=== PATIENT | female | born 1955 | race Caucasian/White ===

== ENCOUNTER 2017-01-30 08:18 | Emergency (ER) | payer OTHER ==
[~2017-01-30] VITALS: Ht 157.5 cm; Wt 55.3 kg
[~2017-01-30 08:18] MED LIST: MULT-1018 PO; VITA100T4 PO
[2017-01-30 08:22] VITALS: BP 148/80; PULSE 69; RESP 18; O2SAT 97
--- NOTE | 2017-01-30 08:44 | ED.REPORT ---
HPI-Altered Mental Status Date of Service Jan 30, 2017 ED Provider: Dr. Sylvester 61 y/o female with a hx of depression presents to the ED with her due to disorientation, onset few days ago. As per the pt's the pt has been "zoning out". He states "she has not been sleeping at night. She keeps fixing covers and pulling on my sierra". He brought her in today because as she was cooking breakfast this morning, "she cleaned the counter half a dozen times and then peed her pants". Associated sx include memory problems and confusion. The pt also reports intermittent dysuria. She denies myalgia, fever, nausea, headache, abdominal pain. Nursing Notes Stated Complaint: DISORIENTED Chief Complaint: Neuro Symptoms/ Deficits Nursing Notes Reviewed: Yes Allergies: Coded Allergies: shellfish derived (Verified Allergy, Unknown, 03/21/16) Scheduled Ciprofloxacin (Cipro) 500 Mg Tablet 500 MG PO BID Multivitamin (Multi Vitamin Daily) 1 Each Tablet 1 EACH PO DAILY Vitamin B Complex 100 No.2 (B-100 Complex) 100 Mg Tablet.er 100 MG PO DAILY General Time Seen by MD: 08:44 Chief Complaint Disoriented Hx Obtained From: Patient, Spouse Arrived By: Walk-in Sudden in Onset?: Yes Onset Occurred: 4 days ago Symptom Duration: Since onset Severity: Current: No pain currently Severity: Maximum: No pain Recent Healthcare: No recent doctor visit Similar Sx Previous: No Past Medical History Past Medical History Hx of EtOH abuse Depression Arthritis Past Surgical History Denies Family History Non-contributory Smoking History Heavy Tobacco Smoker Social History Alcohol Use: Denies alcohol use Drug Use: THC Review of Systems Reports: memory problems Reports: Disorientation Constitutional: Denies: Fever GI: Denies: Abdominal pain, Nausea Neurologic: Denies: Headache Psychiatric: Reports: Confusion Complete sys rev & neg: except as marked. Male: Reports Dysuria Musculoskeletal: Denies: Myalgia Physical Exam Initial Vital Signs Vital Signs (First) Date Time Temp Pulse Resp B/P Pulse Ox O2 Delivery O2 Flow Rate FiO2 01/30/17 08:22 36.2 69 18 148/80 97 Room Air Initial VS: Reviewed Abdomen / GI: Soft, Non-tender Extremities: Vascular intact, Neuro intact, No swelling, No tenderness Skin: Warm, Dry, No cyanosis General/Constitutional: Awake, Alert, Well appearing Head / Eyes: Atraumatic, Normocephalic Neck: Atraumatic, Supple Respiratory / Chest: Atraumatic, Breath sounds NL, Breath sounds = bilat, No respiratory distress, No rales, No rhonchi, No wheezing Cardiovascular: Heart rate NL, Regular rhythm, Heart sounds NL Neurologic: Speech NL, No motor deficits, No sensory deficits Abnormal Mood/Affect: Positive: Flat affect Abnormal Thinking / Perception: Positive: Confused, Insight abnormal, Judgment abnormal She missed 4 points on a partial MMSE. Could not identify the floor of the building and could not repeat back 3 objects. She is oriented to place. Interpretation & Diagnostics Lab Results Interpretation Result Diagram: 01/30/17 1005 01/30/17 1005 Test 01/30/17 10:05 01/30/17 10:35 White Blood Count 7.9th/mm3 (3.8-10.1) Red Blood Count 4.87mil/mm3 (3.90-5.20) Hemoglobin 15.7g/dL (12.0-15.6) Hematocrit 45.9% (35.0-46.0) Mean Corpuscular Volume 94.3fL (81-100) Mean Corpuscular Hemoglobin 32.2pg (27.0-35.0) Mean Corpuscular Hemoglobin Concent 34.2% (32.0-37.0) Red Cell Distribution Width 13.5% (12.3-15.4) Platelet Count 154bil/L (150-400) Neutrophils (%) (Auto) 68.2% (40-74) Lymphocytes (%) (Auto) 21.8% (14-46) Monocytes (%) (Auto) 7.7% (4-12) Eosinophils (%) (Auto) 1.8% (0-5) Basophils (%) (Auto) 0.4% (0-3) Sodium Level 141mEq/L (134-144) Potassium Level 4.0mEq/L (3.5-5.2) Chloride Level 103mEq/L (97-108) Carbon Dioxide Level 23mmol/L (18-29) Blood Urea Nitrogen 19mg/dL (8-27) Creatinine 0.49mg/dL (0.57-1.00) Estimat Glomerular Filtration Rate 183mL/min (>59) Glucose Level 116mg/dL (60-99) Calcium Level 9.2mg/dL (8.5-10.1) Magnesium Level 2.1mg/dL (1.6-2.6) Total Bilirubin 0.4mg/dL (0.0-1.2) Aspartate Amino Transf (AST/SGOT) 19U/L (0-50) Alanine Aminotransferase (ALT/SGPT) 16U/L (0-32) Alkaline Phosphatase 71U/L (25-165) Total Protein 6.9g/dL (6.4-8.4) Albumin 4.5g/dL (3.4-5.0) Thyroid Stimulating Hormone (TSH) 2.290uIU/mL (0.450-4.500) Hold Owen Top Tube Received (Received) Urine Color Yellow (YELLOW) Urine Appearance Hazy (CLEAR,HAZY) Urine pH 6.0 (5.0-8.0) Urine Specific [place] 1.005 (1.003-1.035) Urine Protein Negativemg/dL (NEG,TRACE) Urine Glucose (UA) Negativemg/dL (NEGATIVE) Urine Ketones Negativemg/dL (NEGATIVE) Urine Occult Blood Negative (NEGATIVE) Urine Nitrite Negative (NEGATIVE) Urine Bilirubin Negative (NEGATIVE) Urine Urobilinogen Normalmg/dL (NORMAL) Urine Leukocyte Esterase Large (NEGATIVE) Urine RBC 0-2/hpf (0-2) Urine WBC 6-10/hpf (0-5) Urine Epithelial Cells Occasional/hpf (NONE-MOD) Urine Crystals None seen (NONE SEEN) Urine Bacteria Many/hpf (NONE-FEW) Urine Hyaline Casts None/lpf (NONE) Urine Granular Casts None seen (NONE SEEN) Urine Waxy Casts None seen (NONE SEEN) Urine Red Blood Cell Casts None seen (NONE SEEN) Urine White Blood Cell Casts None seen (NONE SEEN) Urine Mucus Present (None Seen) Urine Trichomonas None seen (NONE SEEN) Urine Yeast None (NONE SEEN) Urinalysis Comment None Urine Culture Reflexed Indicated CT Head Interpretation IMPRESSION: Negative head CT. No acute intracranial hemorrhage. Dictated by: Boaz Ventura M.D. on 01/30/2017 at 8:15 Approved by: Boaz Ventura M.D. on 01/30/2017 at 8:17 Study: Head CT no contrast Interpretation / Wet Read by: Interpret - Radiologist Re-Eval/Medical Decision Re-Evaluation/Progress : Time of Eval: 12:08 Re-Evaluation/Progress Note: Rechecked pt. Discussed lab results, imaging results, diagnosis and plan to discharge. Pt understands and agrees with the plan. F/U instructions and RTER warning given. All questions addressed. Counseled Regarding: Diagnosis, Lab results, Need for follow-up, When/why to return to ED Patient Discharge & Departure Impression: Primary Impression: UTI (urinary tract infection) Urinary tract infection type: acute cystitis Hematuria presence: without hematuria Qualified Code: N30.00 - Acute cystitis without hematuria Additional Impressions: Acute delirium Dementia Dementia type: unspecified type Dementia behavioral disturbance: without behavioral disturbance Qualified Code: F03.90 - Unspecified dementia without behavioral disturbance Disposition: Home (ERASED) Discharge Condition All VS Reviewed: Yes Patient Instructions: Urinary Tract Infection in Women (DC) Additional Instructions: I believe that Jean Claude's acute deterioration in mental status is associated with her bladder infection. I expect her to return to baseline within 24-48 hours. Take the ciprofloxacin every 12 hours for one week. If she is much more ill, call the physician sock and stocking ironer or return to the emergency department. Referrals: Giselle Virk MD (PCP) Scribe Attestation Portions of this note were transcribed by Kaycee Hood. I, , personally performed the history, physical exam and medical decision-making;I reviewed and confirmed the accuracy of the information in the transcribed note. Signed by Aminah Aviles. 01/30/17 13:24 copies to: Giselle Virk MD, Kirk H MD Jan 30, 2017 08:44 Kaycee Hood Jan 30, 2017 10:03
--- NOTE | 2017-01-30 09:18 | DRSVH ---
PROCEDURE: CT BRAIN WITHOUT CONTRAST ([id number]) INDICATIONS: confusion sudden onset TECHNIQUE: Noncontrast 4.5 mm thick angled axial sections acquired from the foramen magnum to the vertex, with c oronal reformats. COMPARISON: [facility], CT, BRAIN W/O CONTRAST, 07/05/2014, 17:46. FINDINGS: Image quality: Excellent. CSF spaces: Basal cisterns are patent. No extra-axial fluid collections. Ventricles are normal in size and shape. Brain: No midline shift. No intracranial masses or hemorrhage. Dotson-white matter interface is norm al. Skull and face: Calvarium and visualized facial bones are intact, without suspicious lesions. Sinuses: Visualized sinuses and mastoids are clear. IMPRESSION: Negative head CT. No acute intracranial hemorrhage. Dictated by: Boaz Ventura M.D. on 01/30/2017 at 8:15 Approved by: Boaz Ventura M.D. on 01/30/2017 at 8:17
[2017-01-30 10:23] LABS: BASOPHILS % (AUTO) 0.4 % (0-3); EOSINOPHILS % (AUTO) 1.8 % (0-5); MONOCYTES % (AUTO) 7.7 % (4-12); Mean Corpuscular Hemoglobin 32.2 pg (27.0-35.0); Mean Corpuscular Volume 94.3 fL (81-100); NEUTROPHILS % (AUTO) 68.2 % (40-74); Platelet Count 154 bil/L (150-400)
[2017-01-30 11:04] LABS: Magnesium 2.1 mg/dL (1.6-2.6)
[2017-01-30 11:12] LABS: APPEARANCE,URINE HAZY (CLEAR,HAZY); COLOR,URINE YELLOW (YELLOW)
[2017-01-30 11:13] LABS: OCCULT BLOOD,URINE NEGATIVE (NEGATIVE); UROBILINOGEN,URINE NORMAL (NORMAL)
[2017-01-30 11:43] VITALS: BP 167/76; PULSE 78; RESP 14; O2SAT 94
[2017-01-30] MEDS ORDERED: CIPR-231 PO (12:05)
[2017-01-30] MEDS ORDERED: MAGN200T PO (18:02)
== END 2017-01-30 12:20 | disposition home or self-care (01) ==
LOC: SED 08:18
DX: N30.00 Acute cystitis without hematuria (principal); B96.20 Unspecified Escherichia coli [E. coli] as the cause of diseases classified elsewhere; R41.0 Disorientation, unspecified; F03.90 Unspecified dementia, unspecified severity, without behavioral disturbance, psychotic disturbance, mood disturbance, and anxiety; F32.9 Major depressive disorder, single episode, unspecified; F17.200 Nicotine dependence, unspecified, uncomplicated; Z91.013 Allergy to seafood

== ENCOUNTER 2017-01-30 16:42 | Inpatient (IN) | payer OTHER ==
[~2017-01-30] VITALS: Ht 157.5 cm; Wt 55.2 kg
--- NOTE | 2017-01-30 16:32 | ED.REPORT ---
HPI-Seizure Date of Service Jan 30, 2017 ED Provider: Dr. Enriquez Pt is a 61 year old female with a history of chronic Hep C who presents to the ED via EMS with her due to worsening altered mental status onset 2 weeks ago. The states the pt has been "zoning out and has not been sleeping at night. This morning she turned on the water to wash dishes, but there were no dishes in the sink." The reports that she was aggressive and he had to trick the pt into coming to the hospital today. The pt tends to "zone out" for 30 seconds to 2 minutes at one time. The episodes of zoning out have happened 3 times today. Per visit to the ED earlier this morning, the brought her in today because she was cooking breakfast this morning, stating that she "cleaned the counter half a dozen times and peed her pants." The associated symptoms were memory issues and confusion. The pt also reported intermittent dysuria. She was found to have a UTI and was discharged. She denies myalgia, fever, nausea, headache, and abdominal pain. When these "zoning out" episodes began last March, they were occurring very infrequently at about 1-2x every month. Incidentally medics report the house smelled strongly of marijuana upon arrival. Per old records on 04/09/16, the patient had an abnormal EEG 03/08/16 with left temporal slowing which may represent a seizure focus. The left temporal slowing is nonspecific by EEG. The MRI of the brain from 03/15/16 showed no evidence of mass but does show microvascular ischemic disease. She was diagnosed with hep C. The seizure episodes did not appear epileptic in nature, but a video EEG was recommended if the episodes persist despite treatment. Further antiepileptic medications were not recommended. HPI was obtained primarily from the pt's and old records. Nursing Notes Stated Complaint: SEIZURE Chief Complaint: Unresponsive Nursing Notes Reviewed: Yes Allergies: Coded Allergies: shellfish derived (Verified Allergy, Unknown, 03/21/16) Scheduled Ciprofloxacin (Cipro) 500 Mg Tablet 500 MG PO BID Magnesium (Magnesium) 200 Mg Tablet 200 MG PO QAM Multivitamin (Multi Vitamin Daily) 1 Each Tablet 1 EACH PO QAM Vitamin B Complex 100 No.2 (B-100 Complex) 100 Mg Tablet.er 100 MG PO QAM General Time Seen by Provider: 16:46 Chief Complaint Chief Complaint: Other (AMS) Hx Obtained From: Spouse, EMS Arrived By: Ambulance Onset Occurred: More than a week ago... (2 weeks) Symptom Duration: Intermittent Progression Since Onset: Intermittent Severity: Current: No pain currently Severity: Maximum: No pain Recent Healthcare: Recent doctor visit Similar Sx Previous: Yes Past Medical History Past Medical History Hx of EtOH abuse Depression Arthritis UTI Chronic hepatitis C Osteoarthritis of hands, bilateral Past Surgical History Nasal Family History Non-contributory Smoking History Current Every Day Smoker Social History Alcohol Use: Denies alcohol use Drug Use: THC Other Social History: Good social support Ambulatory Status Independent Review of Systems Unable to Obtain ROS Patient condition Physical Exam Initial Vital Signs Vital Signs (First) Date Time Temp Pulse Resp B/P Pulse Ox O2 Delivery O2 Flow Rate FiO2 01/30/17 17:04 36.7 89 23 146/62 94 Room Air Initial VS: Reviewed ENT: Mucous membranes moist, Conjunctiva normal, No scleral icterus Abdomen / GI: Soft, Non-tender, No guarding, No rebound Extremities: Vascular intact, Neuro intact Skin: Warm, Dry, No cyanosis General/Constitutional: Awake, Cooperative, Not toxic appearing Confused and disoriented which makes it difficult to complete a full exam Neck: Atraumatic, Full range of motion Respiratory / Chest: Atraumatic, Breath sounds NL, Breath sounds = bilat, No respiratory distress Cardiovascular: Heart rate NL, Regular rhythm, Heart sounds NL Neurologic: CN II - XII intact Intact sensory exam Cranial nerves appear intact Recurrent tick with voluntary tapping of fingers together and tapping of the hand on her head Moving all 4 extremeties symmetrically Waxing and waning sensorium Head / Eyes: Atraumatic, Normocephalic, PERRL, EOMI Upper Extremity / MS: Atraumatic, Full range of motion, Neurologic intact, Vascular intact Lower Extremity / Pelvis / MS: Atraumatic, Full range of motion, Neurologic intact, Vascular intact Interpretation & Diagnostics Lab Results Interpretation Result Diagram: 01/30/17 1737 Test 01/30/17 17:37 01/30/17 17:59 White Blood Count 8.4th/mm3 (3.8-10.1) Red Blood Count 4.99mil/mm3 (3.90-5.20) Hemoglobin 15.9g/dL (12.0-15.6) Hematocrit 46.8% (35.0-46.0) Mean Corpuscular Volume 93.8fL (81-100) Mean Corpuscular Hemoglobin 31.9pg (27.0-35.0) Mean Corpuscular Hemoglobin Concent 34.0% (32.0-37.0) Red Cell Distribution Width 13.6% (12.3-15.4) Platelet Count 146bil/L (150-400) Neutrophils (%) (Auto) 74.4% (40-74) Lymphocytes (%) (Auto) 16.6% (14-46) Monocytes (%) (Auto) 7.1% (4-12) Eosinophils (%) (Auto) 1.5% (0-5) Basophils (%) (Auto) 0.2% (0-3) Hold Owen Top Tube Received (Received) ECG Interpretation ECG Interpretation: Sinus rhythm with a rate of 90. Time: 16:56 Interpreted by: ED physician X-Ray Chest Interpretation Chest Xray Interpretation: IMPRESSION: Mildly reduced inspiratory volume, no acute disease. Dictated by: Jaylon Pham M.D. on 01/30/2017 at 17:16 View: Portable, 1 view Interpretation / Wet Read by: Interpret - Radiologist CT Head Interpretation IMPRESSION: Normal for age, source of current symptoms is not seen. Dictated by: Jaylon Pham M.D. on 01/30/2017 at 17:17 Study: Head CT no contrast Interpretation / Wet Read by: Interpret - Radiologist Re-Eval/Medical Decision Med Decision/Clinical Course Witnessed seizure-like activity. Dilantin was loaded. Patient has not had a witnessed seizure while in the ER. Recently diagnosed with UTI earlier in the day via cath urine showing both bacteria and white blood cells. Prior records from neurology were reviewed. Discussed with both neurology and the hospitalist. Patient will be admitted. Source of Hx: Old records Re-Evaluation/Progress : Time of Eval: 17:28 )( Re-Eval Neurologic Exam: Unresponsive Re-Evaluation/Progress Note: Pt rechecked. Informed pt and pt's of plan for admission. Pt and pt's understand and agree with plan for admission. All questions addressed. Consultation #1: Referral / Consult Name: Kym Rodgers MD Consulted With: Neurology Call Returned at: 17:31 [employer]: Agrees with eval, Agrees with plan Note: Recommends admit. Get EEG tomorrow. Obtain MRI now. Load fosphenytoin. Start Dilantin 300 mg daily. Can call Dr. Ana Maria courtney if patient is in status or for other concerns. Consultation #2: Referral / Consult Name: Anil Van MD Consulted With: Hospitalist Call Returned at: 18:00 [employer]: Accepts admit Counseled Regarding: Diagnosis, Lab results, Need for admission Discharge & Departure Impression: Primary Impression: Delirium Additional Impression: UTI (urinary tract infection) Urinary tract infection type: site unspecified Hematuria presence: without hematuria Qualified Code: N39.0 - Urinary tract infection, site not specified Disposition: ADMITTED TO HOSPITAL Discharge Condition All VS Reviewed: Yes Condition: Stable Referrals: Giselle Virk MD (PCP) Aminah Attestation Portions of this note were transcribed by Rodney Smith and Lynne Adams. I, Dr. Enriquez personally performed the history, physical exam and medical decision-making; I reviewed and confirmed the accuracy of the information in the transcribed note. Signed by: Rodney Smith and Aminah Rosales, 01/30/17 and 17:50. copies to: Giselle Virk MDAries Vanessa MCCLURE Jan 30, 2017 16:32 Lynne Damian Jan 30, 2017 16:52 RODNEY SMITH Jan 30, 2017 17:37
[~2017-01-30 16:42] MED LIST changes: +CIPR-231 PO
[2017-01-30] MEDS ORDERED: 0.9% Sodium Chloride 1,000 ML IV ONE (16:47)
[2017-01-30] MEDS ORDERED: Fosphenytoin Inj 1,000 mgPE in 0.9% Sodium Chloride 50 ML IV ONE (16:50)
[2017-01-30 17:04] VITALS: BP 146/62; PULSE 89; RESP 23; O2SAT 94
[2017-01-30] MEDS ORDERED: Ammonia Aromatic Inhalant Ampule INHALATION PRN (17:05)
--- NOTE | 2017-01-30 17:18 | DRSVH ---
PROCEDURE: X-RAY CHEST ONE VIEW, PORTABLE ([id number]) INDICATIONS: confusion TECHNIQUE: One view of the chest was acquired. COMPARISON: [facility], , CHEST 1VW (PORTABLE), 07/05/2014, 18:07. FINDINGS: Surgical changes and devices: None. Lungs and pleura: No pleural effusions or pneumothorax. Lungs are clear. Mediastinum: Mediastinal contours appear normal. Heart size is normal. Bones and chest wall: No suspicious bony lesions. Overlying soft tissues appear unremarkable. IMPRESSION: Mildly reduced inspiratory volume, no acute disease. Dictated by: Jaylon Pham M.D. on 01/30/2017 at 17:16 Approved by: Jaylon Pham M.D. on 01/30/2017 at 17:16
--- NOTE | 2017-01-30 17:19 | DRSVH ---
PROCEDURE: CT BRAIN WITHOUT CONTRAST ([id number]) INDICATIONS: Stroke TECHNIQUE: Noncontrast 4.5 mm thick angled axial sections acquired from the foramen magnum to the vertex, with c oronal reformats. COMPARISON: [facility], CT, CT BRAIN WO CON, 01/30/2017, 8:51. FINDINGS: Image quality: Excellent. CSF spaces: Basal cisterns are patent. No extra-axial fluid collections. Ventricles are normal in size and shape. Brain: No midline shift. No intracranial masses or hemorrhage. Dotson-white matter interface is norm al. Skull and face: Calvarium and visualized facial bones are intact, without suspicious lesions. Sinuses: Visualized sinuses and mastoids are clear. IMPRESSION: Normal for age, source of current symptoms is not seen. Dictated by: Jaylon Pham M.D. on 01/30/2017 at 17:17 Approved by: Jaylon Pham M.D. on 01/30/2017 at 17:17
[2017-01-30] MEDS ORDERED: cefTRIAXone Inj 1,000 MG in Dextrose 5% Minibag Plus 50 ML IV ONE (17:40)
[2017-01-30 17:47] LABS: BASOPHILS % (AUTO) 0.2 % (0-3); EOSINOPHILS % (AUTO) 1.5 % (0-5); MONOCYTES % (AUTO) 7.1 % (4-12); Mean Corpuscular Hemoglobin 31.9 pg (27.0-35.0); Mean Corpuscular Volume 93.8 fL (81-100); NEUTROPHILS % (AUTO) 74.4 % (40-74); Platelet Count 146 bil/L (150-400)
[2017-01-30] MEDS ORDERED: MAGN200T PO (18:02)
[2017-01-30] MEDS ORDERED: Alum-Mag Hydrox-Simeth 30 mL Suspension PO PRN ×2 (18:10→18:15)
[2017-01-30] MEDS ORDERED: Ondansetron 2 mg/mL 2 mL Inj IVPUSH PRN ×2 (18:10→18:15)
[2017-01-30] MEDS ORDERED: Polyethylene Glycol (PEG) 17 Gm Powder PO PRN (18:15)
[2017-01-30 18:17] LABS: TROPONIN T < 0.010 ug/L (0.0-0.011)
[2017-01-30 18:48] VITALS: BP 146/62; PULSE 80; RESP 18; O2SAT 96
--- NOTE | 2017-01-30 19:48 | DRSVH ---
PROCEDURE: MRI BRAIN WITHOUT CONTRAST ([id number]) INDICATIONS: altered mental status, seizure like activity TECHNIQUE: Noncontrast axial T1 spin echo, axial T2 fast spin echo, sagittal and axial FLAIR, coronal T2 fast sp in echo, axial gradient echo, axial diffusion and ADC through the brain. COMPARISON: [facility], CT, CT BRAIN WO CON, 01/30/2017, 17:00. FINDINGS: Image quality: Degraded by persistent patient motion during image acquisition. CSF Spaces: Basal cisterns are patent. No extra-axial fluid collections. Ventricles are normal in size and shape. Brain: No intracranial masses or hemorrhage. Dotson/white matter interface is normal. Brainstem appe ars normal. Diffusion-weighted images demonstrate no acute ischemic insult. No chronic ischemic ins ults. Normal intravascular flow voids are present. Skull and face: Calvarium has normal marrow signal. Orbits appear normal. Sinuses: Sinuses and mastoids are clear. IMPRESSION: Persistent patient motion during image acquisition. In repeat pulse sequences were nece ssary. Considering the limitations of this study no acute disease is found. Dictated by: Jaylon Pham M.D. on 01/30/2017 at 19:45 Approved by: Jaylon Pham M.D. on 01/30/2017 at 19:46
[2017-01-30 20:19] VITALS: BP 137/83; PULSE 18; PULSE 68; RESP 18; O2SAT 98
[2017-01-30] MEDS: D5 0.45% NaCl + KCl 20 mEq/L 1,000 ML IV SCH (22:36)
--- NOTE | 2017-01-30 22:40 | PCM.HPMED ---
Subjective Date of Service Jan 30, 2017 Primary Provider: Admitting Physician: Anil Van MD Primary Care Physician: Giselle Virk MD Attending Physician: Anil Van MD Admit Status: From the Emergency Department, Admit to Blue Team Chief Complaint: Ratio is unable to give a chief complaint herself. The patient's Gen states that he brought her to the emergency room, the first time this morning, due to her periodic inappropriate behavior. He then brought her back to the emergency room later today due to the patient having 4 separate tonic-clonic seizures. History of Present Illness: The patient is a 61-year-old white female with a history of chronic hepatitis C and intravenous drug use years ago who for the last 10 years has been having episodes of behavior where she "zones out". These episodes are described as episodes where she is poorly responsive and they last approximately 30 seconds or more. Boluses and the patient's Gen states that she just stares into space. However, some times during these episodes she embarks on inappropriate behavior such as cleaning dishes that are not in the sink or cleaning countertops or pushing buttons. Sometimes these episodes involve hallucinations which the patient reports to her Gen. After the episodes are over what she has no memory of these episodes. The patient's mental status started worsening again 2 weeks ago when the patient has been "zoning out and not been sleeping at night. The morning of admission she turned on the water to wash dishes, but there were no dishes in the sink. The reported that she was aggressive and he had to "trick" the patient into coming to the hospital this morning. The patient's states that the patient tends to "zone out" for 30 seconds to 2 minutes at one time. The episodes of zoning out have happened 3 times the day of admission. The brought the patient to the emergency room this morning because she was cooking breakfast, stating that she "clean the counter half a dozen times and PO2 pants ". The associated symptoms were memory issues and confusion. The patient also reported intermittent dysuria. She is found to have a urinary tract infection in the emergency room and was sent home on oral antibiotics. She barely was sent home on Keflex. He denied any myalgias, fever, nausea, headache or abdominal pain. Patient was evaluated in the emergency room by Dr. Keyshawn Beckham. Dr. Enriquez contacted Dr. Farhana Rodgers who recommended that the patient be given fosphenytoin IV and oral Dilantin daily thereafter. She also recommended that the patient be admitted to the hospital service and neurology be consulted. Therefore, the patient was admitted to the hospital service for further evaluation and treatment. Review of Systems: Review of systems from the patient is unobtainable as patient is somewhat obtunded due to recent IV fosphenytoin, and IV Ativan for her MRI scan and apparently being in a postictal state. Allergies Coded Allergies: shellfish derived (Verified Allergy, Unknown, 03/21/16) PMH Hx of EtOH abuse. The patient's Gen states that the patient was an alcoholic up until approximately 10 years ago when she quit. Patient has a history of intravenous drug use with heroin, speed balls and a previous use of cocaine. She quit all of these years ago and now uses marijuana to help her with her osteoarthritis. She occasionally smokes marijuana and occasionally uses edible marijuana. Depression Arthritis History of UTIs Chronic hepatitis C Osteoarthritis of hands, bilateral Surgical History The patient has had nasal surgery The patient had her was in teeth removed in the [employer] Family History The patient's mother is alive at 87 however she is blind and is a cervical cancer survivor. The patient's father in his 50s after a heart problem or his pacemaker failed. The patient has one sister who is 66 and relatively healthy. The patient had one brother was murdered. Social History Hx Alcohol Use: Yes (quit 10 years ago) Hx Substance Use: Yes (quit iv drug 40 years ago, currently uses maraji) Smoking Status: Current Every Day Smoker Living Arrangement: with Family Additional Information The patient was born in [facility] and went to high school in [place] [facility]. She graduated high school and joined the [employer] and will begin working in the [employer] department where she met her Gen and the 2 have been for 42 years. In her early years the patient did intravenous drugs with heroin, speed balls and used cocaine intranasally. Patient quit drugs years ago. Patient has a history of alcohol abuse and one her Gen confronted her about it he then began finding bottles of vodka around the house. After moving to [place] he would she started drinking wine is her drug of choice. The patient however quit drinking cold turkey 10 years ago. Patient states continues to smoke and smokes 1 pack per day and she rolls her own cigarettes. She also uses marijuana by smoking it and also using edible marijuana to help control her arthritis pain. Patient is 3 para 3 her first child was adopted out before she was to Gen. Exam Vital Signs Vital Sign - Last Date Time Temp Pulse Resp B/P Pulse Ox O2 Delivery O2 Flow Rate FiO2 01/30/17 20:19 37.4 18 18 137/83 98 Room Air Exam General: The patient is quite somnolent however she does have periods of lucidity she is able to follow commands. HEENT: Head is atraumatic and normocephalic. Eyes: Pupils are equally round and reactive to light and accommodation. Extraocular muscles are intact. Sclera are white, anicteric. Subconjunctival mucosa is pink. Ears and nose are unremarkable. Oropharynx: There is no mucosal lesions, there is no thrush, there is no pharyngitis. Neck: Is supple, there are no nodes, or masses or tenderness. Chest: Is clear to auscultation and percussion. There are no rales, rhonchi, wheezes or rubs. Heart: Rate, rhythm is regular. There is no murmur, rub or gallop. Abdomen: Good bowel sounds are present. Abdomen is soft, nontender, no organomegaly or masses were appreciated. Extremities: Are symmetrical and well perfused. There is no edema, there is no cellulitis, no rash. Neurologic: There are no focal neurological deficits. Cranial nerves II through XII are intact. There are no sensory or motor deficits. However, patient is very somnolent after receiving 5 mg of fosphenytoin IV and Ativan IV. She is arousable and will follow commands. However, she will return back to sleep very quickly. She is not able to give a good review of systems or history of this time. An full history was obtained from patient's chart and patient's Gen. Psychiatric: Patients mood is calm and shows no sign of agitation at this time. Genital: Deferred Rectal: Deferred Lab and Diagnostics Result Diagram: 01/30/17 1737 01/30/171736 Microbiology Blood cultures are pending X-Rays, CTs and MRIs PROCEDURE: X-RAY CHEST ONE VIEW, PORTABLE ([id number]) INDICATIONS: confusion TECHNIQUE: One view of the chest was acquired. COMPARISON: [facility], CR, CHEST 1VW (PORTABLE), 07/05/2014, 18: 07. FINDINGS: Surgical changes and devices: None. Lungs and pleura: No pleural effusions or pneumothorax. Lungs are clear. Mediastinum: Mediastinal contours appear normal. Heart size is normal. Bones and chest wall: No suspicious bony lesions. Overlying soft tissues appear unremarkable. IMPRESSION: Mildly reduced inspiratory volume, no acute disease. Dictated by: Jaylon Pham M.D. on 01/30/2017 at 17:16 Approved by: Jaylon Pham M.D. on 01/30/2017 at 17:16 PROCEDURE: CT BRAIN WITHOUT CONTRAST ([id number]) INDICATIONS: Stroke TECHNIQUE: Noncontrast 4.5 mm thick angled axial sections acquired from the foramen magnum to the vertex, with coronal reformats. COMPARISON: [facility], CT, CT BRAIN WO CON, 01/30/2017, 8:51. FINDINGS: Image quality: Excellent. CSF spaces: Basal cisterns are patent. No extra-axial fluid collections. Ventricles are normal in size and shape. Brain: No midline shift. No intracranial masses or hemorrhage. Dotson-white matter interface is normal. Skull and face: Calvarium and visualized facial bones are intact, without suspicious lesions. Sinuses: Visualized sinuses and mastoids are clear. IMPRESSION: Normal for age, source of current symptoms is not seen. Dictated by: Jaylon Pham M.D. on 01/30/2017 at 17:17 Approved by: Jaylon Pham M.D. on 01/30/2017 at 17:17 PROCEDURE: MRI BRAIN WITHOUT CONTRAST ([id number]) INDICATIONS: altered mental status, seizure like activity TECHNIQUE: Noncontrast axial T1 spin echo, axial T2 fast spin echo, sagittal and axial FLAIR, coronal T2 fast spin echo, axial gradient echo, axial diffusion and ADC through the brain. COMPARISON: [facility], CT, CT BRAIN WO CON, 01/30/2017, 17:00. FINDINGS: Image quality: Degraded by persistent patient motion during image acquisition. CSF Spaces: Basal cisterns are patent. No extra-axial fluid collections. Ventricles are normal in size and shape. Brain: No intracranial masses or hemorrhage. Dotson/white matter interface is normal. Brainstem appears normal. Diffusion-weighted images demonstrate no acute ischemic insult. No chronic ischemic insults. Normal intravascular flow voids are present. Skull and face: Calvarium has normal marrow signal. Orbits appear normal. Sinuses: Sinuses and mastoids are clear. IMPRESSION: Persistent patient motion during image acquisition. In repeat pulse sequences were necessary. Considering the limitations of this study no acute disease is found. Dictated by: Jaylon Pham M.D. on 01/30/2017 at 19:45 Approved by: Jaylon Pham M.D. on 01/30/2017 at 19:46 Assessment & Plan The patient is a 61-year-old white female with a history of chronic hepatitis C and intravenous drug use years ago who for the last 10 years has been having episodes of behavior where she "zones out". These episodes are described as episodes where she is poorly responsive and they last approximately 30 seconds or more. Boluses and the patient's Gen states that she just stares into space. However, some times during these episodes she embarks on inappropriate behavior such as cleaning dishes that are not in the sink or cleaning countertops or pushing buttons. Sometimes these episodes involve hallucinations which the patient reports to her Gen. After the episodes are over what she has no memory of these episodes. The patient's mental status started worsening again 2 weeks ago when the patient has been "zoning out and not been sleeping at night. The morning of admission she turned on the water to wash dishes, but there were no dishes in the sink. The reported that she was aggressive and he had to "trick" the patient into coming to the hospital this morning. The patient's states that the patient tends to "zone out" for 30 seconds to 2 minutes at one time. The episodes of zoning out have happened 3 times the day of admission. The brought the patient to the emergency room this morning because she was cooking breakfast, stating that she "clean the counter half a dozen times and PO2 pants ". The associated symptoms were memory issues and confusion. The patient also reported intermittent dysuria. She is found to have a urinary tract infection in the emergency room and was sent home on oral antibiotics. She barely was sent home on Keflex. He denied any myalgias, fever, nausea, headache or abdominal pain. Patient was evaluated in the emergency room by Dr. Keyshawn Beckham. Dr. Enriquez contacted Dr. Farhana Rodgers who recommended that the patient be given fosphenytoin IV and oral Dilantin daily thereafter. She also recommended that the patient be admitted to the hospital service and neurology be consulted. Therefore, the patient was admitted to the hospital service for further evaluation and treatment. # Tonic-clonic seizures witnessed at home prior to admission and witnessed by EMS services the morning of admission, patient postictal at the time of admission. Active - 1000 mg of fosphenytoin IV given in the emergency room. - Continue Dilantin 300 mg by mouth daily thereafter as directed by neurology. - Neurology consult in a.m. regarding treatment contacted by the emergency room staff. - Check EEG - Seizure precautions implemented - Neurochecks every 12 hours # Periodic inappropriate behavior, present at the time of admission. Active - These episodes could be a petite mall seizures or absence seizures. - IV fosphenytoin given - Continue with plan for Dilantin 300 mg by mouth daily - Check EEG - Neurology consult in a.m. - Ativan when necessary # History of hepatitis C, present at time of admission. Active - Status post recent treatment with Harvoni. - History of alcohol and drug abuse - We will check serum ammonia level - Continue to monitor closely. - Further workup for possible resolution of hepatitis C will be done as an outpatient. # Osteoarthritis of both hands, present at time of admission. Active - Patient uses marijuana for relief of pain. - Urine drug screen positive for cannabinoids. # Urinary tract infection diagnosed in the ER this morning. Active - We will start IV Rocephin - Check final urine culture results. Disposition: The patient will likely be admitted for more than 2 Band-Aids. Therefore, will admit the patient as an inpatient. Pain Evaluation: Adequate Pain Control VTE Prophylaxis: Sub-Q Enoxaparin Resuscitation Status: CPR: Attempt Resuscitation Anil Van MD Jan 30, 2017 22:40
[2017-01-31] VITALS (8 sets, daily range): BP systolic 128–183; BP diastolic 74–96; PULSE 73–82; RESP 16–18; O2SAT 94–97
--- NOTE | 2017-01-31 05:12 | NUR ---
Admit Patient admitted to room at 1940. Patient arrived mostly sedated from MRI. Patient confused and unable to answer questions. Patients miles Mendoza, answered medical history and medication. Addendum: 01/31/17 at 0523 by MANJEET CHAU RN Confusion/ Impulsive Patient remained confused and very impulsive. Patient pulled out first IV two minutes after leaving room. suggested sitter, no sitter available. Patients Gen returned to sit with patient. Patient trying to get out of bed without help. Patient unsteady on feet and does not follow directions. Patient has been awake most of the night. Ativan given x 2 with some short time relief.
[2017-01-31 05:36] LABS: BASOPHILS % (AUTO) 0.3 % (0-3); EOSINOPHILS % (AUTO) 3.1 % (0-5); MONOCYTES % (AUTO) 8.4 % (4-12); Mean Corpuscular Hemoglobin 32.1 pg (27.0-35.0); Mean Corpuscular Volume 93.6 fL (81-100); NEUTROPHILS % (AUTO) 61.8 % (40-74); Platelet Count 148 bil/L (150-400)
[2017-01-31 07:13] LABS: Magnesium 1.9 mg/dL (1.6-2.6); Phosphorus 3.6 mg/dL (2.5-4.9)
[2017-01-31] MEDS: D5 0.45% NaCl + KCl 20 mEq/L 1,000 ML IV SCH ×2 (07:31→16:04)
[2017-01-31] MEDS ORDERED: cefTRIAXone Inj 2,000 MG in Dextrose 5% Minibag Plus 50 ML IV SCH (08:00)
[2017-01-31] MEDS ORDERED: Phenytoin 100 mg ER Capsule PO SCH (08:30)
--- NOTE | 2017-01-31 09:23 | NUR ---
Evaluation completed. Please go to "Notes" then click on "Assessments and Notes" (bottom left corner of screen). Then select appropriate discipline tab on top of screen.
[2017-01-31] MEDS: Lactulose 20 Gm/30 mL 30 mL Syrup TUBE SCH ×3 (09:25→20:12)
[2017-01-31] MEDS: Potassium Chloride 20 mEq SR Tablet PO SCH ×2 (09:27→20:12)
--- NOTE | 2017-01-31 12:18 | PCM.CHPMED ---
Subjective Date of Service: Jan 31, 2017 Provider requesting consult: Anil Van MD Primary Physician: Admitting Physician: Anil Van MD Primary Care Physician: Giselle Virk MD Attending Physician: Anil Van MD Chief Complaint: Chief Complaint: Seizure-like activity History of Present Illness: Patient is a 61 year old female with history of IV drug abuse in remission, alcohol abuse, chronic Hepatitis C, and history of UTIs who presented with altered mental status and seizure like activity. She had been seen previously by Dr. Rodgers for confusion and episodes of inattention. Her reports that over the last 10 years, she has exhibited episodes of confusion, where she would temporarily forget where she was or what she was saying. He also reports that she has been having episodes of "zoning out," where she stares into the distance and does not respond to verbal cues. These episodes last between 3- seconds to 3-4 minutes and resolve spontaneously, without a postictal phase and with no memory of the episode. Her mental status began to decline about 2 weeks ago when her noticed that she had more episodes of "zoning out" and had not been sleeping at night. Yesterday, he found her at the sink trying to wash dishes without any dishes in the sink. She became incontinent of urine and he brought her to the Emergency Department that morning. She was diagnosed with a UTI and was sent home with Keflex, but had witnessed seizure-like activity at home and EMS was called. She was brought back to the ED where she received a loading dose of fosphenytoin and placed on Dilantin. The patient had an EEG 03/08/16 which showed left temporal slowing; not specifically epileptiform, but may be consistent with focal epilepsy. MRI of the brain from 03/15/16 showed no evidence of mass but does show microvascular ischemic disease. Brain CT 01/30/17 showed no acute disease. Brain MRI 01/30/17 showed no abnormalities despite significant movement artifact. Tox screen was positive for cannabinoids but negative for other substances or alcohol. Today, she appears somewhat confused but is alert. She denies confusion, numbness, tingling, facial droop, weakness, fevers, chills, dizziness, loss of consciousness, nausea, or vomiting. She denies dysuria but reports difficulty initiating urination. Review of Systems: Comprehensive review of systems conducted and was negative except for the pertinent positives listed above. PMH Past Medical History Hx of EtOH abuse. The patient's Gen states that the patient was an alcoholic up until approximately 10 years ago when she quit. Patient has a history of intravenous drug use with heroin, speed balls and a previous use of cocaine. She quit all of these years ago and now uses marijuana to help her with her osteoarthritis. She occasionally smokes marijuana and occasionally uses edible marijuana. Depression Arthritis History of UTIs Chronic hepatitis C Osteoarthritis of hands, bilateral Surgical History The patient has had nasal surgery The patient had her was in teeth removed in the [employer] Allergies: Coded Allergies: shellfish derived (Verified Allergy, Unknown, 01/30/17) Family History Family History The patient's mother is alive at 87 however she is blind and is a cervical cancer survivor. The patient's father in his 50s after a heart problem or his pacemaker failed. The patient has one sister who is 66 and relatively healthy. The patient had one brother was murdered. Social History Hx Alcohol Use: Yes (quit 10 years ago)Hx Substance Use: Yes (quit iv drug 40 years ago, currently uses maraji) Smoking Status: Current Every Day Smoker Living Arrangement: with Family Exam Vital Signs Vital Sign - Last Date Time Temp Pulse Resp B/P Pulse Ox O2 Delivery O2 Flow Rate FiO2 01/31/17 09:27 37.4 78 18 144/80 94 Room Air Intake and Output 01/30/17 01/30/17 01/31/17 Cumulative From/Thru 15:00 23:00 07:00 01/30/17 17:04 - 01/31/17 06:31 Intake Total 1000 ml 789 ml 1789 ml Output Total 1500 ml 1500 ml Balance 1000 ml -711 ml 289 ml Intake Oral 400 ml 400 ml IV Total 1000 ml 389 ml 1389 ml Output Urine Total 1500 ml 1500 ml # Voids 3 3 # Bowel Movements 1 1 Additional Information: General: Alert, somewhat disoriented. She is stated her maiden name rather than current last name, knew the year after glancing at the whiteboard, and stated she was in the [facility] ER. She appears to often answer questions inappropriately. Cooperative, No acute distress. Appears to be easily distracted and fidgets and pulls at lines and places objects into her pockets while talking. Head: Normocephalic, atraumatic. External ears normal. Eyes: PERRLA, EOMI. Anicteric sclerae. Mouth: Mouth normal, Mucous membranes moist/pink Neck: Neck supple with full range of motion. Chest& Lungs: Clear to auscultation bilaterally with no crackles, wheezes, or rhonchi. Cardiovascular: Regular rate/rhythm, Normal S1, Normal S2, No murmurs/rubs/ gallops Abdomen: Non-tender, Non-distended, No masses, Normoactive bowel tones, Soft Musculoskeletal: Normal range of motion Extremities: No cyanosis/clubbing/edema bilaterally Neuro: Normal speech. Strength 4/4 bilateral upper and lower extremities, Cranial Nerves 2-12 Intact, Sensation Intact. Easily distracted and performing strange tasks such as putting random objects into her pockets. Witnessed a 30 second episode where she stopped responding to questions or obeying commands and looked around. Psych: Flat affect, appears to have poor insight. Lab and Diagnostics Result Diagram: 01/31/1752401/31/17524 Assessment & Plan Assessment Patient is a 61 year old female with history of IV drug abuse in remission, alcohol abuse, chronic Hepatitis C, and history of UTIs who presented with altered mental status and seizure like activity. Seizures, acute. Patient presents with seizure-like activity, after years of what appears to be absence type seizures. Prior EEG was suspicious for a seizure focus, but brain MRI was negative at the time, as well as a repeat brain MRI during this admission. A seizure was witnessed during the EEG, with two episodes of noted epileptiform activity in the left temporal region on the EEG. As this happened after loading with fosphenytoin and treatment with Dilantin, she will require transfer to a center with continuous video EEG monitoring, such as [facility]. She should be continuously monitored because at this time we are unable to tell exactly when she is having a seizure. She should have Dilantin levels checked in the morning if she is still at [facility]. She should also receive treatment with Vimpat 200 mg IV loading dose. - Received fosphenytoin loading dose - Continue Dilantin 300 mg PO daily - Vimpat 200 mg IV loading dose - Dilantin levels tomorrow AM - Frequent neurologic checks - Recommend transfer to [facility]. Altered mental status, acute. Patient presented significantly confused, although given the fact that she was actively trying to wash dishes despite the absence of dishes, this does not appear to be similar to her absence seizure like episodes. Given her prior brain MRI that showed microvascular ischemic disease, this could be in part to vascular dementia. Furthermore, she very likely has liver disease given her history of Hep C and alcohol abuse, which is supported by elevated ammonia. Therefore, hepatic encephalopathy may also play a role in her confusion. Finally , there may be an element of delirium exacerbating her cognitive impairment secondary to her current UTI. Her reports she has had poor sleep recently, and she has a history of snoring and apneic episodes while sleeping. She has not yet been seen by Sleep Medicine, but we recommend a sleep study to evaluate for obstructive sleep apnea. Also recommend a lipid panel given her increased stroke risk from smoking and possible HOMERO, in addition to already existing cerebrovascular disease. - Recommend lipid panel - Recommend medium or high dose statin - Aspirin 81 mg daily - Recommend GI consult for treatment of hepatic encephalopathy - Treat underlying UTI - Outpatient referral to Sleep Medicine - Smoking cessation Problems: Pain Evaluation: Adequate Pain Control VTE Prophylaxis: Sub-Q Enoxaparin VTE Mechanical Devices: Intermittant Pneumatic CD Resuscitation Status: CPR: Attempt Resuscitation Venkata Hilton Jan 31, 2017 12:18
[2017-01-31] MEDS ORDERED: LACOSAMIDE IV ONE (14:25)
[2017-01-31] MEDS ORDERED: SODIUM CHLORIDE 0.9% IV ONE (14:25)
--- NOTE | 2017-01-31 16:15 | NUR ---
Social Work: Screening Data: Pt is a 61 y/o female admitted for UTI, delerium, dementia, seizure. Pt's PCP is Dr Virk, pt's insurance is [facility]. EMR reviewed. No readmit score listed at this time. CLINICAL EDUCATION COORDINATOR will continue to follow for possible d/c planning needs. Assessment: Pt with assistance at baseline. Plan: CLINICAL EDUCATION COORDINATOR will continue to follow for possible d/c planning needs. MARILIN Aldridge
--- NOTE | 2017-01-31 18:46 | NUR ---
Orientation/Meds Pt alert, oriented at times. Lots of intermittent sz like episodes noted on shift. At times, pt was very still, other times, eyes were wandering but pt uncooperative. IV ativan given per production maintenance technician request. Pt seen to be asleep for several hours afterwards. Tolerated IV Vimpat well. Pt seen to be more alert with less sz like moments after ativan and Vimpat. at bedside most day, helped with redirection. VSS. Will continue to monitor.
--- NOTE | 2017-02-01 00:10 | PCM.PNMED ---
Subjective Date of Service Jan 31, 2017 Subjective Patient continues to have periods of "zoning out" and periods of lucidity. She and her have no other new complaints. Exam Vital Signs Vital Sign - Last Date Time Temp Pulse Resp B/P Pulse Ox O2 Delivery O2 Flow Rate FiO2 01/31/17 22:16 37.0 78 16 183/77 97 Room Air Intake and Output 01/31/17 01/31/17 02/01/17 Cumulative From/Thru 15:00 23:00 07:00 01/30/17 17:04 - 01/31/17 20:44 Intake Total 534 ml 696 ml 3019 ml Output Total 400 ml 1900 ml Balance 534 ml 296 ml 1119 ml Intake Oral 350 ml 750 ml IV Total 534 ml 346 ml 2269 ml Output Urine Total 400 ml 1900 ml # Voids 3 6 # Bowel Movements 3 4 Exam General: The patient is less somnolent and continues to have periods of lucidity. She is able to follow commands. HEENT: Head is atraumatic and normocephalic. Eyes: Pupils are equally round and reactive to light and accommodation. Extraocular muscles are intact. Sclera are white, anicteric. Subconjunctival mucosa is pink. Ears and nose are unremarkable. Oropharynx: There is no mucosal lesions, there is no thrush, there is no pharyngitis. Neck: Is supple, there are no nodes, or masses or tenderness. Chest: Is clear to auscultation and percussion. There are no rales, rhonchi, wheezes or rubs. Heart: Rate, rhythm is regular. There is no murmur, rub or gallop. Abdomen: Good bowel sounds are present. Abdomen is soft, nontender, no organomegaly or masses were appreciated. Extremities: Are symmetrical and well perfused. There is no edema, there is no cellulitis, no rash. Neurologic: There are no focal neurological deficits. Cranial nerves II through XII are intact. There are no sensory or motor deficits. However, patient is still somnolent however slightly less so. She is arousable and will follow commands. However, she will return back to sleep very quickly. She is not able to give a good review of systems or history of this time. An full history was obtained from patient's chart and patient's Gen. Psychiatric: Patients mood is calm and shows no sign of agitation at this time. Genital: Deferred Rectal: Deferred Lab and Diagnostics Result Diagram: 01/31/17 0501/31/17524 Microbiology Blood cultures are pending X-Rays, CTs and MRIs PROCEDURE: X-RAY CHEST ONE VIEW, PORTABLE ([id number]) INDICATIONS: confusion TECHNIQUE: One view of the chest was acquired. COMPARISON: [facility], , CHEST 1VW (PORTABLE), 07/05/2014, 18: 07. FINDINGS: Surgical changes and devices: None. Lungs and pleura: No pleural effusions or pneumothorax. Lungs are clear. Mediastinum: Mediastinal contours appear normal. Heart size is normal. Bones and chest wall: No suspicious bony lesions. Overlying soft tissues appear unremarkable. IMPRESSION: Mildly reduced inspiratory volume, no acute disease. Dictated by: Jaylon Pham M.D. on 01/30/2017 at 17:16 Approved by: Jaylon Pham M.D. on 01/30/2017 at 17:16 PROCEDURE: CT BRAIN WITHOUT CONTRAST ([id number]) INDICATIONS: Stroke TECHNIQUE: Noncontrast 4.5 mm thick angled axial sections acquired from the foramen magnum to the vertex, with coronal reformats. COMPARISON: [facility], CT, CT BRAIN WO CON, 01/30/2017, 8:51. FINDINGS: Image quality: Excellent. CSF spaces: Basal cisterns are patent. No extra-axial fluid collections. Ventricles are normal in size and shape. Brain: No midline shift. No intracranial masses or hemorrhage. Dotson-white matter interface is normal. Skull and face: Calvarium and visualized facial bones are intact, without suspicious lesions. Sinuses: Visualized sinuses and mastoids are clear. IMPRESSION: Normal for age, source of current symptoms is not seen. Dictated by: Jaylon Pham M.D. on 01/30/2017 at 17:17 Approved by: Jaylon Pham M.D. on 01/30/2017 at 17:17 PROCEDURE: MRI BRAIN WITHOUT CONTRAST ([id number]) INDICATIONS: altered mental status, seizure like activity TECHNIQUE: Noncontrast axial T1 spin echo, axial T2 fast spin echo, sagittal and axial FLAIR, coronal T2 fast spin echo, axial gradient echo, axial diffusion and ADC through the brain. COMPARISON: [facility], CT, CT BRAIN WO CON, 01/30/2017, 17:00. FINDINGS: Image quality: Degraded by persistent patient motion during image acquisition. CSF Spaces: Basal cisterns are patent. No extra-axial fluid collections. Ventricles are normal in size and shape. Brain: No intracranial masses or hemorrhage. Dotson/white matter interface is normal. Brainstem appears normal. Diffusion-weighted images demonstrate no acute ischemic insult. No chronic ischemic insults. Normal intravascular flow voids are present. Skull and face: Calvarium has normal marrow signal. Orbits appear normal. Sinuses: Sinuses and mastoids are clear. IMPRESSION: Persistent patient motion during image acquisition. In repeat pulse sequences were necessary. Considering the limitations of this study no acute disease is found. Dictated by: Jaylon Pham M.D. on 01/30/2017 at 19:45 Approved by: Jaylon Pham M.D. on 01/30/2017 at 19:46 Assessment & Plan The patient is a 61-year-old white female with a history of chronic hepatitis C and intravenous drug use years ago who for the last 10 years has been having episodes of behavior where she "zones out". These episodes are described as episodes where she is poorly responsive and they last approximately 30 seconds or more. Boluses and the patient's Gen states that she just stares into space. However, some times during these episodes she embarks on inappropriate behavior such as cleaning dishes that are not in the sink or cleaning countertops or pushing buttons. Sometimes these episodes involve hallucinations which the patient reports to her Gen. After the episodes are over what she has no memory of these episodes. The patient's mental status started worsening again 2 weeks ago when the patient has been "zoning out and not been sleeping at night. The morning of admission she turned on the water to wash dishes, but there were no dishes in the sink. The reported that she was aggressive and he had to "trick" the patient into coming to the hospital this morning. The patient's states that the patient tends to "zone out" for 30 seconds to 2 minutes at one time. The episodes of zoning out have happened 3 times the day of admission. The brought the patient to the emergency room this morning because she was cooking breakfast, stating that she "clean the counter half a dozen times and PO2 pants ". The associated symptoms were memory issues and confusion. The patient also reported intermittent dysuria. She is found to have a urinary tract infection in the emergency room and was sent home on oral antibiotics. She barely was sent home on Keflex. He denied any myalgias, fever, nausea, headache or abdominal pain. Patient was evaluated in the emergency room by Dr. Keyshawn Beckham. Dr. Enriquez contacted Dr. Farhana Rodgers who recommended that the patient be given fosphenytoin IV and oral Dilantin daily thereafter. She also recommended that the patient be admitted to the hospital service and neurology be consulted. Therefore, the patient was admitted to the hospital service for further evaluation and treatment. # Tonic-clonic seizures witnessed at home prior to admission and witnessed by EMS services the morning of admission, patient postictal at the time of admission. Active - 1000 mg of fosphenytoin IV given in the emergency room. - Continue Dilantin 300 mg by mouth daily thereafter as directed by neurology. - Neurology has been consulted and Dr. Aguiar has been kind enough to see the patient. He has reviewed the EEG and it appears that the patient is continued to have partial complex seizures while on antiseizure medications. He recommends that the patient be transferred to either [facility] in [place] or [facility] As [facility] as her partner and stroke therapy I have contacted the [facility] transfer line and Dr. Ortiz has agreed to accept the patient in transfer for continuous EEG monitoring at a higher level of care at [facility]. We are currently awaiting a bed for the patient. I have spoken to Dr. aguiar and Dr. Diana Hughes. Patient will be transferred whenever a bed is available. Vimpat has been added to the patient's antiepileptic regimen. Will continue oral Dilantin. - Seizure precautions implemented - Continue Neurochecks. # Periodic inappropriate behavior, present at the time of admission. Active suspect secondary to hepatic encephalopathy. As serum ammonia level is 93. Oral lactulose started - These episodes could also be a petite mall seizures or absence seizures. - IV fosphenytoin given. IV Vimpat given. - Continue with plan for Dilantin 300 mg by mouth daily - Check EEG - Neurology consult appreciated - Ativan when necessary # History of hepatitis C, present at time of admission. Active with history of alcoholism. Patient quit 10 years ago. Suspect this patient has hepatic encephalopathy. - Status post recent treatment with Harvoni. - History of alcohol and drug abuse - We will check serum ammonia level - Continue to monitor closely. - Further workup for possible resolution of hepatitis C will be done as an outpatient. # Osteoarthritis of both hands, present at time of admission. Active - Patient uses marijuana for relief of pain. - Urine drug screen positive for cannabinoids. # Urinary tract infection diagnosed in the ER this morning. Active - We will start IV Rocephin - Check final urine culture results. Disposition: The patient will need to be transferred to a higher level of care for continuous EEG monitoring. I have contacted Dr. Diana Hughes neurologist hr business partner consultant at [facility] in [place], [place]. She has agreed to accept the patient in transfer. We are waiting for a bed prior to transfer. Pain Evaluation: Adequate Pain Control VTE Prophylaxis: Sub-Q Enoxaparin VTE Mechanical Devices: Intermittant Pneumatic CD Resuscitation Status: CPR: Attempt Resuscitation Anil Van MD Feb 01, 2017 00:10
[2017-02-01 01:09] VITALS: BP 168/82; PULSE 71; RESP 16; O2SAT 99
--- NOTE | 2017-02-01 01:45 | NUR ---
Transfer to [facility] Patient report called to Carol at [facility]. EMS arrived to transport patient. Report given to critical care transport nurse. Patient alert x 2, forgetful but aware of transfer to [facility]. Patient called to notify him of patient transfer. Patient left by EMS at 0140.
--- NOTE | 2017-02-01 06:21 | PROCED ---
[address] [address] EEG PATIENT: DALE JAQUEZ : 1955 MR#: [id number] ADMIT: 01/30/2017 JOB ID: [id number] DATE OF SERVICE: HISTORY: The patient is a 61-year-old woman with spells. TECHNICAL DESCRIPTION: This digital EEG was recorded using 25 scalp and ear, and two EKG electrodes. It was reviewed in bipolar and referential montages following reformatting of the 10-20 International Electrode Placement System. During the recording, the patient was noted to be awake, drowsy and asleep. The background was composed of an 8.5-9 hertz, 10-20 microvolt symmetrical and reactive posterior dominant rhythm that attenuated with eye opening. The rest of the background was composed of low voltage faster frequencies. This recording starts in sleep, which is characterized by the appearance of symmetrical vertex waves, heralding stage 1 of sleep. There was also noted to be bilateral frontally predominant beta activity. It appeared more pronounced on the left over the left hemisphere. There was intermittent left temporal slowing at times with phase reversal and with sharp waves. There was intermittent sharply contoured slowing over the left temporal head regions with phase reversal at T3. There were two FX characterized by a generalized epileptiform seizure emanating from the left temporal head region, T3 and T5, lasting for approximately 30 seconds. A 2-3 hertz generalized spike and wave activity classic for an electrographic seizure that was followed by an EEG decremental response. This was characterized by 2-3 hertz high amplitude rhythmic slow wave activity in a generalized fashion with spike and slow wave activity lasting for approximately 30 seconds in each episode followed by a generalized decremental response. These are clearly electrographic seizures. Given these characteristics they do not appear to be consistent with a benign variant such as SRDEA. There is a clear evolution of seizure activity with high amplitude generalized sharp and slow waves with a gradual decrement in frequency, followed by a generalized electrode decremental response. Clinically, the patient appears to be staring with eye opening and closing and does not respond to questions or commands during these episodes. Hyperventilation was not performed. Photic stimulation from 1-30 hertz did not elicit any photic driving response. There was a brief appearance of stage 2 sleep characterized by the presence of symmetrical sleep spindles. The EKG rhythm strip revealed a heart rate of 60-80 beats per minute with no apparent arrhythmias. IMPRESSION: This EEG performed in the awake, drowsy and asleep states is abnormal. 1. The sharply contoured slowing over the left temporal head region with occasional sharp wave phase reversals at T3 is suggestive of a focal structural or functional abnormality with epileptogenic potential. 2. There are two electrographic seizures with clinical correlate characterized by staring spells during which the patient is nonresponsive and nonverbal and does not follow commands and is only seen to blink her eyes during these episodes. This is suggestive of two seizures apparent on this electroencephalogram. 3. Bilateral frontally predominant beta which appears to be more prominent over the left hemisphere is abnormal. This may be seen in the setting of a focal functional or structural defect. It may also be seen as a medication side effect. In this case, the patient did receive, according to her nurse, Ativan, prior to this electroencephalogram due to agitation. The results were relayed to Dr. Anil Van. Clinical correlation is advised.
--- NOTE | 2017-02-01 18:51 | PCM.DC.MED ---
Discharge Summary Date of Service Feb 01, 2017 Dates of Hospitalization Date of Hospital Admission Jan 30, 2017 at 18:09 Date of Discharge: Feb 01, 2017 Providers: Admitting Physician: Anil Van MD Primary Care Physician: Giselle Virk MD Attending Physician: Anil Van MD Procedures XRay, CTs & MRIs PROCEDURE: X-RAY CHEST ONE VIEW, PORTABLE ([id number]) INDICATIONS: confusion TECHNIQUE: One view of the chest was acquired. COMPARISON: [facility], CR, CHEST 1VW (PORTABLE), 07/05/2014, 18: 07. FINDINGS: Surgical changes and devices: None. Lungs and pleura: No pleural effusions or pneumothorax. Lungs are clear. Mediastinum: Mediastinal contours appear normal. Heart size is normal. Bones and chest wall: No suspicious bony lesions. Overlying soft tissues appear unremarkable. IMPRESSION: Mildly reduced inspiratory volume, no acute disease. Dictated by: Jaylon Pham M.D. on 01/30/2017 at 17:16 Approved by: Jaylon Pham M.D. on 01/30/2017 at 17:16 PROCEDURE: CT BRAIN WITHOUT CONTRAST ([id number]) INDICATIONS: Stroke TECHNIQUE: Noncontrast 4.5 mm thick angled axial sections acquired from the foramen magnum to the vertex, with coronal reformats. COMPARISON: [facility], CT, CT BRAIN WO CON, 01/30/2017, 8:51. FINDINGS: Image quality: Excellent. CSF spaces: Basal cisterns are patent. No extra-axial fluid collections. Ventricles are normal in size and shape. Brain: No midline shift. No intracranial masses or hemorrhage. Dotson-white matter interface is normal. Skull and face: Calvarium and visualized facial bones are intact, without suspicious lesions. Sinuses: Visualized sinuses and mastoids are clear. IMPRESSION: Normal for age, source of current symptoms is not seen. Dictated by: Jaylon Pham M.D. on 01/30/2017 at 17:17 Approved by: Jaylon Pham M.D. on 01/30/2017 at 17:17 PROCEDURE: MRI BRAIN WITHOUT CONTRAST ([id number]) INDICATIONS: altered mental status, seizure like activity TECHNIQUE: Noncontrast axial T1 spin echo, axial T2 fast spin echo, sagittal and axial FLAIR, coronal T2 fast spin echo, axial gradient echo, axial diffusion and ADC through the brain. COMPARISON: [facility], CT, CT BRAIN WO CON, 01/30/2017, 17:00. FINDINGS: Image quality: Degraded by persistent patient motion during image acquisition. CSF Spaces: Basal cisterns are patent. No extra-axial fluid collections. Ventricles are normal in size and shape. Brain: No intracranial masses or hemorrhage. Dotson/white matter interface is normal. Brainstem appears normal. Diffusion-weighted images demonstrate no acute ischemic insult. No chronic ischemic insults. Normal intravascular flow voids are present. Skull and face: Calvarium has normal marrow signal. Orbits appear normal. Sinuses: Sinuses and mastoids are clear. IMPRESSION: Persistent patient motion during image acquisition. In repeat pulse sequences were necessary. Considering the limitations of this study no acute disease is found. Dictated by: Jaylon Pham M.D. on 01/30/2017 at 19:45 Approved by: Jaylon Pham M.D. on 01/30/2017 at 19:46 Brief History The patient is a 61-year-old white female with a history of chronic hepatitis C and intravenous drug use years ago who for the last 10 years has been having episodes of behavior where she "zones out". These episodes are described as episodes where she is poorly responsive and they last approximately 30 seconds or more. Boluses and the patient's Gen states that she just stares into space. However, some times during these episodes she embarks on inappropriate behavior such as cleaning dishes that are not in the sink or cleaning countertops or pushing buttons. Sometimes these episodes involve hallucinations which the patient reports to her Gen. After the episodes are over what she has no memory of these episodes. The patient's mental status started worsening again 2 weeks ago when the patient has been "zoning out and not been sleeping at night. The morning of admission she turned on the water to wash dishes, but there were no dishes in the sink. The reported that she was aggressive and he had to "trick" the patient into coming to the hospital this morning. The patient's states that the patient tends to "zone out" for 30 seconds to 2 minutes at one time. The episodes of zoning out have happened 3 times the day of admission. The brought the patient to the emergency room this morning because she was cooking breakfast, stating that she "clean the counter half a dozen times and PO2 pants ". The associated symptoms were memory issues and confusion. The patient also reported intermittent dysuria. She is found to have a urinary tract infection in the emergency room and was sent home on oral antibiotics. She barely was sent home on Keflex. He denied any myalgias, fever, nausea, headache or abdominal pain. Patient was evaluated in the emergency room by Dr. Keyshawn Beckham. Dr. Enriquez contacted Dr. Farhana Rodgers who recommended that the patient be given fosphenytoin IV and oral Dilantin daily thereafter. She also recommended that the patient be admitted to the hospital service and neurology be consulted. Therefore, the patient was admitted to the hospital service for further evaluation and treatment. Hospital Course The patient is a 61-year-old white female with a history of chronic hepatitis C and intravenous drug use years ago who for the last 10 years has been having episodes of behavior where she "zones out". These episodes are described as episodes where she is poorly responsive and they last approximately 30 seconds or more. Boluses and the patient's Gen states that she just stares into space. However, some times during these episodes she embarks on inappropriate behavior such as cleaning dishes that are not in the sink or cleaning countertops or pushing buttons. Sometimes these episodes involve hallucinations which the patient reports to her Gen. After the episodes are over what she has no memory of these episodes. The patient's mental status started worsening again 2 weeks ago when the patient has been "zoning out and not been sleeping at night. The morning of admission she turned on the water to wash dishes, but there were no dishes in the sink. The reported that she was aggressive and he had to "trick" the patient into coming to the hospital this morning. The patient's states that the patient tends to "zone out" for 30 seconds to 2 minutes at one time. The episodes of zoning out have happened 3 times the day of admission. The brought the patient to the emergency room this morning because she was cooking breakfast, stating that she "clean the counter half a dozen times and PO2 pants ". The associated symptoms were memory issues and confusion. The patient also reported intermittent dysuria. She is found to have a urinary tract infection in the emergency room and was sent home on oral antibiotics. She barely was sent home on Keflex. He denied any myalgias, fever, nausea, headache or abdominal pain. Patient was evaluated in the emergency room by Dr. Keyshawn Beckham. Dr. Enriquez contacted Dr. Farhana Rodgers who recommended that the patient be given fosphenytoin IV and oral Dilantin daily thereafter. She also recommended that the patient be admitted to the hospital service and neurology be consulted. Therefore, the patient was admitted to the hospital service for further evaluation and treatment. 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 - Tonic-clonic seizures witnessed at home prior to admission and witnessed by EMS services the morning of admission, patient postictal at the time of admission. Active - 1000 mg of fosphenytoin IV given in the emergency room. - Continue Dilantin 300 mg by mouth daily thereafter as directed by neurology. - Neurology has been consulted and Dr. Aguiar has been kind enough to see the patient. He has reviewed the EEG and it appears that the patient is continued to have partial complex seizures while on antiseizure medications. He recommends that the patient be transferred to either [facility] in [place] or [facility] to [facility]. As [facility] as her partner and stroke therapy I have contacted the [facility] transfer line and Dr. Ortiz has agreed to accept the patient in transfer for continuous EEG monitoring at a higher level of care at [facility]. We are currently awaiting a bed for the patient. I have spoken to Dr. aguiar and Dr. Diana Hughes. Patient will be transferred whenever a bed is available. Vimpat has been added to the patient's antiepileptic regimen. Will continue oral Dilantin. - Seizure precautions implemented - Continue Neurochecks. # Periodic inappropriate behavior, present at the time of admission. Active suspect secondary to hepatic encephalopathy. As serum ammonia level is 93. Oral lactulose started - These episodes could also be a petite mall seizures or absence seizures. - IV fosphenytoin given. IV Vimpat given. - Continue with plan for Dilantin 300 mg by mouth daily - Check EEG - Neurology consult appreciated - Ativan when necessary # History of hepatitis C, present at time of admission. Active with history of alcoholism. Patient quit 10 years ago. Suspect this patient has hepatic encephalopathy. - Status post recent treatment with Harvoni. - History of alcohol and drug abuse - We will check serum ammonia level - Continue to monitor closely. - Further workup for possible resolution of hepatitis C will be done as an outpatient. # Osteoarthritis of both hands, present at time of admission. Active - Patient uses marijuana for relief of pain. - Urine drug screen positive for cannabinoids. # Urinary tract infection diagnosed in the ER this morning. Active - We will start IV Rocephin - Check final urine culture results. Disposition: The patient will need to be transferred to a higher level of care for continuous EEG monitoring. I have contacted Dr. Diana Hughes neurologist director telecommunications at [facility] in [place], [place]. She has agreed to accept the patient in transfer. Patient was transferred to [facility] early this morning. Exam Vital Signs (Last) Date Time Temp Pulse Resp B/P Pulse Ox O2 Delivery O2 Flow Rate FiO2 02/01/17 01:09 36.7 71 16 168/82 99 Room Air Exam Patient left early this morning before she could be examined again today. Test 01/30/17 17:37 01/30/17 17:59 01/31/17 05:25 Troponin T < 0.010ug/L (0.0-0.011) Hold Owen Top Tube Received (Received) Alcohols < 10mg/dL (0-10) Urine Opiates Screen Negative Urine Methadone Screen Negative Urine Barbiturates Screen Negative Urine Amphetamines Screen Negative Urine Benzodiazepines Screen Negative Urine Cocaine Metabolite Screen Negative Urine Cannabinoids Screen Positive White Blood Count 7.5th/mm3 (3.8-10.1) Red Blood Count 4.86mil/mm3 (3.90-5.20) Hemoglobin 15.6g/dL (12.0-15.6) Hematocrit 45.5% (35.0-46.0) Mean Corpuscular Volume 93.6fL (81-100) Mean Corpuscular Hemoglobin 32.1pg (27.0-35.0) Mean Corpuscular Hemoglobin Concent 34.3% (32.0-37.0) Red Cell Distribution Width 13.5% (12.3-15.4) Platelet Count 148bil/L (150-400) Neutrophils (%) (Auto) 61.8% (40-74) Lymphocytes (%) (Auto) 26.1% (14-46) Monocytes (%) (Auto) 8.4% (4-12) Eosinophils (%) (Auto) 3.1% (0-5) Basophils (%) (Auto) 0.3% (0-3) Sodium Level 140mEq/L (134-144) Potassium Level 3.6mEq/L (3.5-5.2) Chloride Level 104mEq/L (97-108) Carbon Dioxide Level 19mmol/L (18-29) Blood Urea Nitrogen 10mg/dL (8-27) Creatinine 0.37mg/dL (0.57-1.00) Estimat Glomerular Filtration Rate 253mL/min (>59) Glucose Level 120mg/dL (60-99) Calcium Level 8.9mg/dL (8.5-10.1) Phosphorus Level 3.6mg/dL (2.5-4.9) Magnesium Level 1.9mg/dL (1.6-2.6) Total Bilirubin 0.5mg/dL (0.0-1.2) Aspartate Amino Transf (AST/SGOT) 16U/L (0-50) Alanine Aminotransferase (ALT/SGPT) 13U/L (0-32) Alkaline Phosphatase 67U/L (25-165) Ammonia 93ug/dL (18-53) C-Reactive Protein < 0.0mg/dL (0.0-0.5) Total Protein 6.4g/dL (6.4-8.4) Albumin 4.2g/dL (3.4-5.0) Procalcitonin 0.03ng/mL (0.00-0.08) Thyroid Stimulating Hormone (TSH) 2.670uIU/mL (0.450-4.500) Microbiology Results Blood cultures are pending Discharge Medications Discharge Medications Ciprofloxacin (Cipro) 500 Mg Tablet 500 MG PO BID Prescribed by: ALTON BO MD Magnesium (Magnesium) 200 Mg Tablet 200 MG PO QAM (Reported) Multivitamin (Multi Vitamin Daily) 1 Each Tablet 1 EACH PO QAM (Reported) Vitamin B Complex 100 No.2 (B-100 Complex) 100 Mg Tablet.er 100 MG PO QAM ( Reported) Followup Plan Disposition: Patient was transferred to [facility] for continuous EEG monitoring due to nonconvulsive status epilepticus. Follow-up Provider: Giselel Virk MD Follow-up with PCP in: 1 week (Patient will need neurology follow-up with Dr. Lm Aguiar.) Anil Van MD Feb 01, 2017 18:51
== END 2017-02-01 01:38 | disposition short-term general hospital (02) | DRG 101 ==
LOC: SED 16:42 → MPC 18:09 → OBSVTOIN 18:09 → MPC 19:16
PROVIDERS: ADMIT Internal Medicine Infectious Disease; ATTEND Internal Medicine Infectious Disease
PROC: 4A00X4Z Measurement of Central Nervous Electrical Activity, External Approach (ICD-10-PCS; principal; 2017-01-31)
DX: G40.401 Other generalized epilepsy and epileptic syndromes, not intractable, with status epilepticus (principal); N39.0 Urinary tract infection, site not specified; K72.90 Hepatic failure, unspecified without coma; B18.2 Chronic viral hepatitis C; F17.210 Nicotine dependence, cigarettes, uncomplicated; F12.90 Cannabis use, unspecified, uncomplicated; M19.042 Primary osteoarthritis, left hand; M19.041 Primary osteoarthritis, right hand; R41.82 Altered mental status, unspecified; F10.21 Alcohol dependence, in remission